=== PATIENT | female | born 1970 | race Caucasian/White ===

== ENCOUNTER 2022-04-28 17:31 | Emergency (ER) | payer MEDICAID ==
[~2022-04-28] VITALS: Ht 152.4 cm; Wt 50.0 kg
[2022-04-28 23:40] LABS: BASOPHILS % 0.4 % (0.0-2.0); CHLORIDE 108 mEq/L (98-107); EOSINOPHILS % 0.9 % (0.0-5.0); HEMATOCRIT. 37.4 % (36.0-48.0); HEMOGLOBIN. 12.1 g/dL (12.0-16.0); LYMPHOCYTES % 37.4 % (20.0-50.0); MEAN CORPUSCULAR HEMOGLOBIN 28.5 pg (28.0-32.0); MEAN PLATELET VOLUME 7.6 fl (7.4-10.4); MONOCYTES % 8.8 % (2.0-8.0); NEUTROPHILS % 52.5 % (40.0-76.0); PLATELET 404 x1000/uL (130-400); RED BLOOD CELL COUNT 4.24 mill/uL (4.2-5.4); RED CELL DISTRIBUTION WIDTH 15.4 % (11.6-14.6)
[2022-04-28 23:46] LABS: ETHANOL BLOOD < 10 mg/dL
[2022-04-29] MEDS ORDERED: PROPOFOL 10MG/ML 100ML 100 ML IV ONE
[2022-04-29 00:03] LABS: HCG SCREEN NEGATIVE
[2022-04-29] MEDS ORDERED: CYCLOBENZAPRINE 10MG TABLET PO STA (00:12)
[2022-04-29] MEDS ORDERED: ACETAMINOPHEN 325MG TABLET PO ONE (00:15)
[2022-04-29 01:20] VITALS: BP 148/82
== END 2022-04-29 01:27 | disposition home or self-care (01) ==
LOC: ER 17:31
DX: S39.012A Strain of muscle, fascia and tendon of lower back, initial encounter (principal); W01.0XXA Fall on same level from slipping, tripping and stumbling without subsequent striking against object, initial encounter; Y93.89 Activity, other specified; Y92.828 Other wilderness area as the place of occurrence of the external cause; Z88.0 Allergy status to penicillin; Z88.6 Allergy status to analgesic agent
CPT/HCPCS: 36415; 72131; 80053; 80320; 84703; 85025; 99284; G0480